=== PATIENT | female | born 1955 | race Caucasian/White ===

== ENCOUNTER → 2018-05-05 15:14 | Outpatient (CLI) | payer OTHER, SELFPAY ==
--- NOTE | 2018-05-05 | DI.MG.S_ITS ---
BILATERAL DIGITAL SCREENING MAMMOGRAM 3D/2D WITH CAD: 05/05/2018 CLINICAL: Routine screening. Family history of breast cancer. Comparison is made to exams dated: 01/15/2017 mammogram, 06/18/2015 mammogram, and 06/02/2013 mammogram - [facility]. The tissue of both breasts is heterogeneously dense. This may lower the sensitivity of mammography. Current study was also evaluated with a Computer Aided Detection (CAD) system. No significant masses, calcifications, or other findings are seen in either breast. There has been no significant interval change. IMPRESSION: NEGATIVE There is no mammographic evidence of malignancy. A 1 year screening mammogram is recommended. This exam was interpreted at Station ID: [id number]. NOTE: For mammograms, a report in lay terms will be sent to the patient. Approximately 15% of breast malignancies will not be visualized mammographically. In the management of a palpable breast mass, a negative mammogram must not discourage biopsy of a clinically suspicious lesion. Electronically Signed By: Juanpablo cristina/isa:05/05/2018 16:46:41 letter sent: Normal Exam ACR BI-RADS Category 1: Negative 3341F
== END ==
PROVIDERS: Family Provider Family Medicine; PCP Family Medicine; Visit Provider Family Medicine
DX: Z12.31 Encounter for screening mammogram for malignant neoplasm of breast (principal); Z80.3 Family history of malignant neoplasm of breast
CPT/HCPCS: 77063; 77067

== ENCOUNTER → 2019-05-19 08:25 | Outpatient (CLI) | payer OTHER, SELFPAY ==
--- NOTE | 2019-05-19 | DI.MG.S_ITS ---
BILATERAL DIGITAL SCREENING MAMMOGRAM 3D/2D WITH CAD: 05/19/2019 CLINICAL: Routine screening. Family history of breast cancer. Comparison is made to exams dated: 01/15/2017 mammogram, 05/05/2018 mammogram, 06/18/2015 mammogram, 06/02/2013 mammogram, and 05/03/2012 mammogram - [facility]. The tissue of both breasts is heterogeneously dense. This may lower the sensitivity of mammography. Current study was also evaluated with a Computer Aided Detection (CAD) system. There is an asymmetry in the left breast posterior depth lateral region seen on the craniocaudal view only. There is possible architectural distortion associated with the asymmetry. No other significant masses, calcifications, or other findings are seen in either breast. IMPRESSION: INCOMPLETE: NEEDS ADDITIONAL IMAGING EVALUATION There is an asymmetry in the left breast posterior depth lateral region seen on the craniocaudal view only. There is possible architectural distortion associated with the asymmetry. Additional views with possible ultrasound are recommended. This exam was interpreted at Station ID: [id number]. NOTE: For mammograms, a report in lay terms will be sent to the patient. Approximately 15% of breast malignancies will not be visualized mammographically. In the management of a palpable breast mass, a negative mammogram must not discourage biopsy of a clinically suspicious lesion. Electronically Signed By: Cory Newby M.D. ecl/:05/19/2019 12:01:27 letter sent: Additional Imaging Needed ACR BI-RADS Category 0: Incomplete 3340F
== END ==
PROVIDERS: Family Provider Family Medicine; PCP Family Medicine; Visit Provider Family Medicine
DX: Z12.31 Encounter for screening mammogram for malignant neoplasm of breast (principal); Z80.3 Family history of malignant neoplasm of breast
CPT/HCPCS: 77063; 77067

== ENCOUNTER → 2019-06-06 08:18 | Outpatient (CLI) | payer OTHER, SELFPAY ==
--- NOTE | 2019-06-06 | DI.MG.S_ITS ---
UNILATERAL LEFT DIGITAL DIAGNOSTIC MAMMOGRAM 3D/2D WITH ADDITIONAL VIEWS: 06/06/2019 CLINICAL: Additional evaluation requested from prior study. Comparison is made to exams dated: 05/19/2019 mammogram, 05/05/2018 mammogram, 01/15/2017 mammogram, and 06/18/2015 mammogram - [facility]. The tissue of left breast is heterogeneously dense. This may lower the sensitivity of mammography. With focal spot compression, and additional views, the asymmetry in the left breast posterior depth lateral region seen on screening mammography resolves. No other significant masses or calcifications are seen in the breast. IMPRESSION: INCOMPLETE: NEEDS ADDITIONAL IMAGING EVALUATION Resolution of screening mammography abnormality with additional views. Ultrasound evaluation to confirm resolution is recommended and was performed immediately following this exam. This exam was interpreted at Station ID: [id number]. NOTE: For mammograms, a report in lay terms will be sent to the patient. Approximately 15% of breast malignancies will not be visualized mammographically. In the management of a palpable breast mass, a negative mammogram must not discourage biopsy of a clinically suspicious lesion. Electronically Signed By: Glenys diaz/:06/06/2019 09:07:43 ACR BI-RADS Category 0: Incomplete 3340F
--- NOTE | 2019-06-06 | DI.US.S_ITS ---
LIMITED ULTRASOUND OF LEFT BREAST: 06/06/2019 CLINICAL: Patient returns today to evaluate an architectural distortion in the left breast. Comparison is made to exams dated: 06/06/2019 mammogram, 05/19/2019 mammogram, 05/05/2018 mammogram, and 01/15/2017 mammogram - [facility]. Color flow and real-time ultrasound of the left breast outer aspect were performed. Mcdowell scale images of the real-time examination were reviewed. There is an area of fibroglandular tissue with an indistinct margin in the left breast at 3:30 middle depth. This area of fibroglandular tissue displays posterior acoustic shadowing, but has no discrete solid component. IMPRESSION: PROBABLY BENIGN The area of fibroglandular tissue in the left breast is probably benign. A follow-up ultrasound in 6 months is recommended. Findings and recommendations were conveyed to the patient at time of exam. This exam was interpreted at Station ID: [id number]. Electronically Signed By: Glenys diaz/:06/06/2019 10:27:07 letter sent: Followup Recommended Ultrasound BI-RADS: 3 Probably benign
== END ==
PROVIDERS: Family Provider Family Medicine; PCP Family Medicine; Visit Provider Family Medicine
DX: R92.8 Other abnormal and inconclusive findings on diagnostic imaging of breast (principal)
CPT/HCPCS: 76642; 77065; G0279

== ENCOUNTER → 2020-01-02 12:46 | Outpatient (CLI) | payer OTHER, SELFPAY ==
--- NOTE | 2020-01-02 | DI.US.S_ITS ---
ULTRASOUND OF LEFT BREAST: 01/02/2020 CLINICAL: 6 month follow-up of mass. Comparison is made to exams dated: 06/06/2019 ultrasound, 06/06/2019 mammogram, 05/19/2019 mammogram, 05/05/2018 mammogram, and 01/15/2017 mammogram - [facility]. Real-time ultrasound of the left breast was performed. Mcdowell scale images of the real-time examination were reviewed. There is a persistent 1.3 cm x 0.9 cm x 0.6 cm area of dense fibroglandular tissue with indistinct margin in the left breast at 2:30 o'clock middle depth 3 cm from the nipple. This area of fibroglandular tissue is heterogeneously hypoechoic and without focal mass or disturbed parenchymal echotexture. This abnormality is not significantly changed. Color flow imaging demonstrates that there is no vascularity present. This likely represents shadowing at the interfaces of Coopers ligaments within dense fibroglandular parenchyma. No other significant abnormalities were seen sonographically in the left breast. IMPRESSION: PROBABLY BENIGN The 1.3 cm x 0.9 cm x 0.6 cm area of likely dense fibroglandular tissue in the left breast is probably benign. A follow-up left mammogram and a left ultrasound in 6 months is recommended to demonstrate stability. The patient will also be due for her annual right breast mammogram at that time. This exam was interpreted at Station ID: [id number]. Electronically Signed By: Chris Sales M.D. aty/:01/02/2020 14:34:39 letter sent: Followup Recommended Ultrasound BI-RADS: 3 Probably benign
== END ==
PROVIDERS: Family Provider Family Medicine; PCP Family Medicine; Referring Provider Family Medicine; Visit Provider Family Medicine
DX: R92.8 Other abnormal and inconclusive findings on diagnostic imaging of breast (principal)
CPT/HCPCS: 76642

== ENCOUNTER → 2020-07-19 09:29 | Outpatient (CLI) | payer MEDICARE, OTHER, SELFPAY ==
--- NOTE | 2020-07-19 09:57 | DI.MG.S_ITS ---
Patient Name: VITOR RAM date: 1955 Sex: F Attending Physician: Frantz Indications: Date: 07/19/2020 09:49 At the request of: HUDSON DUVAL Procedure: MM diagnostic mammo BI BILATERAL DIGITAL DIAGNOSTIC MAMMOGRAM 3D/2D SHORT-TERM FOLLOW-UP: 07/19/2020 CLINICAL: Patient returns for a 12 month follow up of the left breast, due for bilateral exam. Comparison is made to exams dated: 06/06/2019 mammogram, 05/19/2019 mammogram, and 05/05/2018 mammogram - [facility]. The tissue of both breasts is heterogeneously dense. This may lower the sensitivity of mammography. There is an oval equal density asymmetry with an indistinct margin in the left breast posterior depth lateral region seen on the craniocaudal view only. This is not significantly changed. No other significant masses, calcifications, or other findings are seen in either breast. IMPRESSION: INCOMPLETE: NEEDS ADDITIONAL IMAGING EVALUATION The oval equal density asymmetry in the left breast is indeterminate. An ultrasound is recommended. This exam was interpreted at Station ID: [id number]. NOTE: For mammograms, a report in lay terms will be sent to the patient. Approximately 15% of breast malignancies will not be visualized mammographically. In the management of a palpable breast mass, a negative mammogram must not discourage biopsy of a clinically suspicious lesion. Electronically Signed By: Sujit porter/lindarad:07/19/2020 10:39:33 ACR BI-RADS Category 0: Incomplete 3340F Continued Report - Page 2 of 2 Patient Name: IVTOR RAM date: 1955 Sex: F Attending Physician: Frantz Indications: Date: 07/19/2020 09:49 At the request of: HUDSON DUVAL Procedure: MM diagnostic mammo BI
--- NOTE | 2020-07-19 10:32 | DI.US.S_ITS ---
Patient Name: VITOR RAM date: 1955 Sex: F Attending Physician: Frantz Indications: Date: 07/19/2020 10:33 At the request of: HUDSON DUVAL Procedure: US breast LT limited LIMITED ULTRASOUND OF LEFT BREAST: 07/19/2020 CLINICAL: 6 month follow-up of mass. Comparison is made to exams dated: 07/19/2020 mammogram, 01/02/2020 ultrasound, 06/06/2019 ultrasound, 06/06/2019 mammogram, 05/19/2019 mammogram, and 05/05/2018 mammogram - [facility]. Color flow and real-time ultrasound of the left breast 2-3 o'clock region were performed on the areas of interest. There is a 1.1 cm x 0.7 cm x 1.1 cm oval area of fibroglandular tissue with an indistinct margin in the left breast at 2 o'clock middle depth. This oval area of fibroglandular tissue is hypoechoic. This abnormality is not significantly changed. Color flow imaging demonstrates that there is no vascularity present. IMPRESSION: PROBABLY BENIGN The 1.1 cm x 0.7 cm x 1.1 cm oval area of fibroglandular tissue in the left breast is probably benign. A follow-up ultrasound in 6 months is recommended. A follow-up ultrasound in 6 months is recommended to demonstrate stability. This exam was interpreted at Station ID: [id number]. Electronically Signed By: Sujit Francois M.D. ddbonnie/:07/19/2020 11:19:42 letter sent: Followup Recommended Ultrasound BI-RADS: 3 Probably benign
== END ==
PROVIDERS: Family Provider Family Medicine; PCP Family Medicine; Referring Provider Family Medicine; Visit Provider Family Medicine
DX: R92.8 Other abnormal and inconclusive findings on diagnostic imaging of breast (principal); N64.89 Other specified disorders of breast
CPT/HCPCS: 76642; 77066; G0279

== ENCOUNTER → 2020-08-30 09:11 | Outpatient (CLI) | payer MEDICARE, OTHER, SELFPAY ==
--- NOTE | 2020-08-30 | DI.US.S_ITS ---
PROCEDURE: US ABD AORTA ANEURYSM SCREEN INDICATIONS: SCREENING ABDOMINAL AORTIC ANEURYSM TECHNIQUE: Real time scanning was performed of the aorta and iliac arteries, with image documentation. COMPARISON: None. FINDINGS: Aorta: Proximal aortic diameter measures 2.2 x 2.8 cm. Mid-aorta measures 1.7 x 1.9 cm. Distal aortic diameter is 1.5 x 1.7 cm. Iliac arteries: Right common iliac artery measures 0.7 x 1 cm. Left common iliac artery measures 0.9 x 1 cm. IMPRESSION: Negative for aneurysm. Dictated by: Eb Burciaga M.D. on 08/30/2020 at 12:12 Approved by: Eb Burciaga M.D. on 08/30/2020 at 12:13
== END ==
PROVIDERS: Family Provider Family Medicine; PCP Family Medicine; Referring Provider Nurse Practitioner Family; Visit Provider Nurse Practitioner Family
DX: Z13.6 Encounter for screening for cardiovascular disorders (principal); M85.852 Other specified disorders of bone density and structure, left thigh; Z78.0 Asymptomatic menopausal state
CPT/HCPCS: 76706; 77080

== ENCOUNTER → 2021-01-10 09:41 | Outpatient (CLI) | payer MEDICARE, OTHER, SELFPAY ==
--- NOTE | 2021-01-10 | DI.US.S_ITS ---
LIMITED ULTRASOUND OF LEFT BREAST: 01/10/2021 CLINICAL: Patient returns today to evaluate a focal asymmetry in the left breast. Comparison is made to exams dated: 07/19/2020 ultrasound, 07/19/2020 mammogram, 01/02/2020 ultrasound, 06/06/2019 ultrasound, 06/06/2019 mammogram, and 05/19/2019 mammogram - [facility]. Color flow ultrasound of the left breast was performed. Mcdowell scale images of the real-time examination were reviewed. There is a 1.2 cm x 0.9 cm x 0.8 cm oval area of fibroglandular tissue with an indistinct margin in the left breast at 2 o'clock middle depth 3 cm from the nipple. This oval area of fibroglandular tissue is hypoechoic. Color flow imaging demonstrates that there is no vascularity present. This abnormality has not significantly changed in size when compared to the prior exam given differences in measurement technique. IMPRESSION: PROBABLY BENIGN The 1.2 cm x 0.9 cm x 0.8 cm oval area of fibroglandular tissue in the left breast is probably benign. A follow-up ultrasound in 6 months is recommended. A follow-up mammogram and an ultrasound in 6 months is recommended to demonstrate stability. This exam was interpreted at Station ID: [id number]. Electronically Signed By: Adonay victor/isa:01/10/2021 13:20:21 letter sent: Followup Recommended Ultrasound BI-RADS: 3 Probably benign
== END ==
PROVIDERS: Family Provider Family Medicine; PCP Family Medicine; Referring Provider Nurse Practitioner Family; Visit Provider Nurse Practitioner Family
DX: R92.8 Other abnormal and inconclusive findings on diagnostic imaging of breast (principal); N64.89 Other specified disorders of breast
CPT/HCPCS: 76642

== ENCOUNTER → 2021-07-22 12:35 | Outpatient (CLI) | payer MEDICARE, OTHER, SELFPAY ==
--- NOTE | 2021-07-22 | DI.MG.S_ITS ---
BILATERAL DIGITAL DIAGNOSTIC MAMMOGRAM 3D/2D: 07/22/2021 CLINICAL: Short term follow up for the left breast. Due for bilateral. Comparison is made to exams dated: 07/19/2020 mammogram, 07/19/2020 ultrasound, 05/19/2019 mammogram, 05/05/2018 mammogram, 06/06/2019 mammogram, and 06/02/2013 mammogram - [facility]. The tissue of both breasts is heterogeneously dense. This may lower the sensitivity of mammography. The previously described oval equal density asymmetry in the left breast posterior depth lateral region seen on the craniocaudal view only is no longer seen. No other significant masses, calcifications, or other findings are seen in either breast. IMPRESSION: INCOMPLETE: NEEDS ADDITIONAL IMAGING EVALUATION The previously described oval equal density asymmetry in the left breast is no longer seen and likely represented fibroglandular tissue as previously suspected. An ultrasound is recommended to confirm and is scheduled to immediately follow this examination. This exam was interpreted at Station ID: [id number]. NOTE: For mammograms, a report in lay terms will be sent to the patient. Approximately 15% of breast malignancies will not be visualized mammographically. In the management of a palpable breast mass, a negative mammogram must not discourage biopsy of a clinically suspicious lesion. Electronically Signed By: Chris Sales M.D. aty/:07/22/2021 14:08:34 ACR BI-RADS Category 0: Incomplete 3340F
--- NOTE | 2021-07-22 | DI.US.S_ITS ---
ULTRASOUND OF LEFT BREAST: 07/22/2021 CLINICAL: Patient returns today to evaluate an asymmetry in the left breast. Comparison is made to exams dated: 07/22/2021 mammogram, 01/10/2021 ultrasound, 07/19/2020 ultrasound, 07/19/2020 mammogram, 01/02/2020 ultrasound, and 06/06/2019 [facility]. Color flow and real-time ultrasound of the left breast were performed. Mcdowell scale images of the real-time examination were reviewed. No significant abnormalities were seen sonographically in the left breast. IMPRESSION: NEGATIVE There is no sonographic evidence of malignancy. There is no abnormality seen in the left breast to correspond with the now resolved and previously described mammography finding which likely represents normal fibroglandular tissue. A 1 year screening mammogram is recommended. Findings and recommendations were conveyed to the patient during today's evaluation. This exam was interpreted at Station ID: [id number]. Electronically Signed By: Chris Sales M.D. aty/:07/22/2021 14:09:36 letter sent: Normal Exam Ultrasound BI-RADS: 1 Negative
== END ==
PROVIDERS: Family Provider Family Medicine; PCP Family Medicine; Referring Provider Nurse Practitioner Family; Visit Provider Nurse Practitioner Family
DX: R92.8 Other abnormal and inconclusive findings on diagnostic imaging of breast (principal)
CPT/HCPCS: 76642; 77066; G0279

== ENCOUNTER → 2022-09-17 09:11 | Outpatient (CLI) | payer MEDICARE, OTHER, SELFPAY ==
--- NOTE | 2022-09-17 | DI.MG.S_ITS ---
BILATERAL DIGITAL SCREENING MAMMOGRAM 3D/2D WITH CAD: 09/17/2022 CLINICAL: Routine screening. Comparison is made to exams dated: 07/22/2021 ultrasound, 07/22/2021 mammogram, 07/19/2020 mammogram, and 05/19/2019 mammogram - [facility]. Both breasts are heterogeneously dense, which may obscure small masses (category c / 51-75% glandular tissue). Current study was also evaluated with a Computer Aided Detection (CAD) system. No significant masses, calcifications, or other findings are seen in either breast. There has been no significant interval change. IMPRESSION: NEGATIVE There is no mammographic evidence of malignancy. A 1 year screening mammogram is recommended. Based on the Tyrer Cuzick model (a risk assessment model) the patient's lifetime risk is 12.0% and her 10 year risk is 6.4%. According to the ACR, ACS, and NCCN guidelines, an annual breast MRI exam along with mammogram is recommended if the patient's lifetime risk is 20% or greater. This exam was interpreted at Station ID: [id number]. NOTE: For mammograms, a report in lay terms will be sent to the patient. Approximately 15% of breast malignancies will not be visualized mammographically. In the management of a palpable breast mass, a negative mammogram must not discourage biopsy of a clinically suspicious lesion. Electronically Signed By: Lois joy/isa:09/17/2022 12:00:13 letter sent: Normal Exam ACR BI-RADS Category 1: Negative 3341F
== END ==
PROVIDERS: Family Provider Family Medicine; PCP Family Medicine; Referring Provider Nurse Practitioner Family; Visit Provider Nurse Practitioner Family
DX: Z12.31 Encounter for screening mammogram for malignant neoplasm of breast (principal)
CPT/HCPCS: 77063; 77067

== ENCOUNTER → 2022-12-11 14:14 | Outpatient (CLI) | payer MEDICARE, OTHER, SELFPAY ==
--- NOTE | 2022-12-11 | DI.US.S_ITS ---
PROCEDURE: US THYROID INDICATIONS: Personal history of other endocrine disease, enlarged thy TECHNIQUE: Real-time scanning was performed of the thyroid gland, with image documentation. COMPARISON: [facility], US, THYROID, 02/16/2012, 12:39. FINDINGS: Right: Thyroid lobe measures 4.9 x 1.5 x 1.4 mg cm, and is homogeneous in echotexture. Left: Thyroid lobe measures 4.5 x 0.9 x 1.5 cm, and is homogenous in echotexture. Isthmus: 0.3 mm thick. Nodule number: 1 Location: Right inferior Size: 0.4 x 0.3 x 0.3 cm. Composition: Solid Echogenicity: Hyperechoic Shape: wider than tall. Margins: Small Echogenic foci: None Total points: 3 ACR TI-RADS category: 3 Nodule number: 2 Location: Left superior Size: 0.4 x 0.2 x 0.4 cm. Composition: Predominantly solid Echogenicity: Hypoechoic Shape: wider than tall. Margins: Small Echogenic foci: 4 Total points: 4 ACR TI-RADS category: 4 IMPRESSION: 1. Small thyroid nodules bilaterally. Please see enclosed follow-up recommendation. ACR TI-RADS definitions and recommendations: TI-RADS 1 (benign): 0 points. FNA not needed. TI-RADS 2 (not suspicious): 2 points. FNA not needed. TI-RADS 3 (mildly suspicious): 3 points. * FNA if 2.5 cm or larger, follow up if 1.5 cm or larger (at 1, 3, and 5 years). TI-RADS 4 (moderately suspicious): 4-6 points. * FNA if 1.5 cm or larger, follow up if 1 cm or larger (at 1, 2, 3, and 5 years). TI-RADS 5 (highly suspicious): 7 points or more. * FNA if 1 cm or larger, follow up if 0.5 cm or larger (every year for 5 years). Dictated by: Isai Pitts M.D. on 12/11/2022 at 18:55 Approved by: Isai Pitts M.D. on 12/11/2022 at 19:00
== END ==
PROVIDERS: Family Provider Family Medicine; PCP Family Medicine; Referring Provider Family Medicine; Visit Provider Family Medicine
DX: M81.6 Localized osteoporosis [Lequesne] (principal); Z83.49 Family history of other endocrine, nutritional and metabolic diseases; Z86.39 Personal history of other endocrine, nutritional and metabolic disease; E04.2 Nontoxic multinodular goiter; Z79.83 Long term (current) use of bisphosphonates; Z78.0 Asymptomatic menopausal state
CPT/HCPCS: 76536; 77080

== ENCOUNTER → 2024-03-31 11:33 | Outpatient (CLI) | payer MEDICARE, OTHER, SELFPAY ==
--- NOTE | 2024-03-31 11:37 | DI.MG.S_ITS ---
BILATERAL DIGITAL SCREENING MAMMOGRAM 3D/2D WITH CAD: 03/31/2024 CLINICAL: Routine screening. Family history of breast cancer. Comparison is made to exams dated: 09/17/2022 mammogram, 07/22/2021 mammogram, and 07/19/2020 mammogram - [facility]. Both breasts are heterogeneously dense, which may obscure small masses (category c / 51-75% glandular tissue). Current study was also evaluated with a Computer Aided Detection (CAD) system. There are benign calcifications in both breasts. No significant masses, calcifications, or other findings are seen in either breast. There has been no significant interval change. IMPRESSION: BENIGN There is no mammographic evidence of malignancy. A 1 year screening mammogram is recommended. Based on the Tyrer Cuzick model (a risk assessment model) the patient's lifetime risk is 11.4% and her 10 year risk is 6.4%. According to the ACR, ACS, and NCCN guidelines, an annual breast MRI exam along with mammogram is recommended if the patient's lifetime risk is 20% or greater. This exam was interpreted at Station ID: [id number]. NOTE: For mammograms, a report in lay terms will be sent to the patient. Approximately 15% of breast malignancies will not be visualized mammographically. In the management of a palpable breast mass, a negative mammogram must not discourage biopsy of a clinically suspicious lesion. Electronically Signed By: Lois joy/isa:03/31/2024 12:48:56 letter sent: Normal Exam ACR BI-RADS Category 2: Benign Finding(s) 3342F
== END ==
LOC: MAMMO 11:36
PROVIDERS: Family Provider Family Medicine; PCP Family Medicine; Referring Provider Family Medicine; Visit Provider Family Medicine
DX: Z12.31 Encounter for screening mammogram for malignant neoplasm of breast (principal); R92.333 Mammographic heterogeneous density, bilateral breasts; Z80.3 Family history of malignant neoplasm of breast
CPT/HCPCS: 77063; 77067

== ENCOUNTER → 2025-04-03 10:32 | Outpatient (CLI) | payer MEDICARE, OTHER, SELFPAY ==
--- NOTE | 2025-04-03 10:34 | DI.MG.S_ITS ---
MM screening mammo BI: 04/03/2025. BI-RADS: 1 CLINICAL: 69-year old female for bilateral screening mammogram. Tyrer-Cuzick lifetime risk of 8.5%. No personal or first-degree family history of breast cancer. PRIOR EXAMS 03/31/2024, 09/17/2022, 07/22/2021, 01/10/2021, 07/19/2020, 01/02/2020, 06/06/2019, 05/19/2019, 05/05/2018, 01/15/2017, 06/18/2015. MAMMOGRAPHY TECHNIQUE: 2D and 3D (tomosynthesis) digital mammographic views obtained, with additional images as needed for full coverage. Current study was also evaluated with a Computer Aided Detection (CAD) system. DENSITY C. The breasts are heterogeneously dense, which may obscure small masses. MAMMOGRAPHY FINDINGS Bilateral: No suspicious mass, asymmetry, microcalcification, or other abnormality seen. IMPRESSION: * No evidence of malignancy. RECOMMENDATIONS Bilateral * Annual screening mammography. OVERALL ASSESSMENT CATEGORY BI-RADS-1: Negative. The [employer] recommends annual screening mammography beginning at age 40 for women with average risk of breast cancer. ELECTRONICALLY SIGNED: London Valladares M.D. on 04/03/2025 at 03:42:51 PM PT Interpreting Station ID: [id number]
--- NOTE | 2025-04-03 10:35 | DI.RAD.S_ITS ---
PROCEDURE: XR DEXA AXIAL SKELETON INDICATIONS: OSTEOPENIA,POSTMENOPAUSAL/ROUTINE COMPARISON: [facility], , XR DEXA AXIAL SKELETON, 12/11/2022, 15:09. FINDINGS: Lumbar Spine: Bone mineral density 1.095 (previously 1.072) g/cm2, T score 0.4 (previously 0.2). Left Femoral Neck: Bone mineral density 0.674 (previously 0.694) g/cm2, T score -1.6 (previously -1.4). Left Hip: Bone mineral density 0.883 (previously 0.885) g/cm2, T score -0.5 (previously -0.5). Fracture Risk Calculation (when applicable): 10-year fracture risk of a major osteoporotic fracture 9.7 percent and of a hip fracture 1.4 percent. (T score greater or equal to -1.0 to: NORMAL) (T score from -1.1 to -2.4: OSTEOPENIA) (T score less than or equal to -2.5: OSTEOPOROSIS) IMPRESSION: Osteopenia--- recommend repeat DEXA in 2-3 years for reassessment. Follow-up guidelines as follows: Osteoporosis: Consider a repeat DEXA and Vertebral Fracture Assessment (VFA) exam in 2 years or sooner if medically necessary, to reassess this patient's status. Osteopenia: Consider a repeat DEXA in 2-3 years to reassess this patient's status, or if there is a new clinical indication. Normal: Consider a repeat DEXA in 5 years or sooner, or if there is a new clinical indication. All treatment decisions require clinical judgment and consideration of individual patient factors, including patient preferences, comorbidities, previous drug use, risk factors not captured in the FRAX model (e.g., frailty, falls, vitamin D deficiency, increased bone turnover, interval significant decline in bone density ) and possible under- or over-estimation of fracture risk by FRAX. In addition, the NOF Guide recommends that FDA-approved medical therapies be considered in postmenopausal women and men age >= 50 years with a: * Hip or vertebral (clinical or morphometric) fracture * T-score of <=-2.5 at the spine or hip * Ten-year fracture probability by FRAX of >= 3% for hip fracture or >=20% for major osteoporotic fracture. Dictated by: Joshua Daniel M.D. on 04/03/2025 at 19:02 Approved by: Joshua Daniel M.D. on 04/03/2025 at 19:05
== END ==
LOC: RAD 10:33
PROVIDERS: Family Provider Family Medicine; PCP Physician Assistant; Referring Provider Physician Assistant; Visit Provider Physician Assistant
DX: Z12.31 Encounter for screening mammogram for malignant neoplasm of breast (principal); R92.333 Mammographic heterogeneous density, bilateral breasts; M85.89 Other specified disorders of bone density and structure, multiple sites; Z78.0 Asymptomatic menopausal state
CPT/HCPCS: 77063; 77067; 77080